=== PATIENT | female | born 2000 | race Caucasian/White ===

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

== ENCOUNTER 2021-08-17 07:02 | Emergency (ER) | payer OTHER ==
[~2021-08-17] VITALS: Ht 157.5 cm; Wt 75.0 kg
[2021-08-17 08:05] VITALS: BP 111/75
== END 2021-08-17 10:10 | disposition home or self-care (01) ==
LOC: ED 07:02
DX: J06.9 Acute upper respiratory infection, unspecified (principal); J35.8 Other chronic diseases of tonsils and adenoids; F17.200 Nicotine dependence, unspecified, uncomplicated; K21.9 Gastro-esophageal reflux disease without esophagitis; Z20.822 Contact with and (suspected) exposure to COVID-19

== ENCOUNTER 2023-01-10 11:13 | Emergency (ER) | payer OTHER ==
[~2023-01-10] VITALS: Ht 157.5 cm; Wt 88.4 kg
[2023-01-10 11:33] VITALS: BP 102/76
[2023-01-10 12:00] VITALS: BP 110/74
[2023-01-10] MEDS ORDERED: FLEXERIL5 M1 PO (12:21)
[2023-01-10] MEDS ORDERED: IBUPROFEN600 MG PO (12:21)
[2023-01-10 12:30] VITALS: BP 100/69
[2023-01-10 13:00] VITALS: BP 102/68
[2023-01-10 13:10] VITALS: BP 102/68
== END 2023-01-10 13:21 | disposition home or self-care (01) ==
LOC: ED 11:13
DX: M25.562 Pain in left knee (principal); F17.200 Nicotine dependence, unspecified, uncomplicated

== ENCOUNTER 2024-02-25 12:04 | Emergency (ER) | payer OTHER ==
[~2024-02-25] VITALS: Ht 157.5 cm; Wt 75.0 kg
[~2024-02-25 12:04] MED LIST changes: +FLEXERIL5 M1 PO; +IBUPROFEN600 MG PO
[2024-02-25 12:12] VITALS: BP 129/92
[2024-02-25 12:15] VITALS: BP 115/69
[2024-02-25] MEDS ORDERED: PROMETHAZINE HCL 25 MG/ML AMP IM ONE (12:15)
[2024-02-25 12:35] LABS: BASO% 0.4 % (0-3); EOS% 2.3 % (0-8); HEMATOCRIT 40.3 % (37.0-47.0); HEMOGLOBIN 13.8 g/dl (12.0-16.0); IMMATURE GRANULOCYTES 0.2 % (0.0-5.0); LYMPH% 31.8 % (15-41); MEAN CELL VOLUME 97.8 fL CALC (80.0-100.0); MEAN CORPUSCULAR HGB 33.5 pG CALC (26.0-32.0); MEAN CORPUSCULAR HGB CONC 34.2 g/dL CAL (32.0-36.0); MONO% 11.4 % (2-13); NEUT# 3.04 thou/uL (2.00-7.15); NEUT% 53.9 % (42-76); RED BLOOD COUNT 4.12 mill/uL (4.20-5.60)
[2024-02-25 12:52] VITALS: BP 96/70
[2024-02-25 12:56] LABS: ALBUMIN 4.1 g/dL (3.2-5.0); BILIRUBIN, TOTAL 0.7 mg/dL (0.02-1.3); CREATININE 0.7 mg/dL (0.5-1.0); POTASSIUM 3.7 mmol/l (3.5-5.1); TOTAL PROTEIN 7.2 g/dL (6.3-8.2)
[2024-02-25 14:54] VITALS: BP 96/70
== END 2024-02-25 15:00 | disposition home or self-care (01) ==
LOC: ED 12:04
PROVIDERS: Family Medicine
DX: R11.2 Nausea with vomiting, unspecified (principal); N93.9 Abnormal uterine and vaginal bleeding, unspecified; F17.200 Nicotine dependence, unspecified, uncomplicated

== ENCOUNTER 2024-08-09 11:47 | Emergency (ER) | payer OTHER ==
[~2024-08-09] VITALS: Ht 157.5 cm; Wt 75.0 kg
[2024-08-09 13:03] VITALS: BP 97/70
[2024-08-09 13:15] VITALS: BP 101/75
[2024-08-09 13:32] VITALS: BP 101/75
== END 2024-08-09 13:33 | disposition home or self-care (01) ==
LOC: ED 11:47
DX: M79.672 Pain in left foot (principal); F17.200 Nicotine dependence, unspecified, uncomplicated

== ENCOUNTER 2024-08-11 12:27 | Emergency (ER) | payer OTHER ==
[~2024-08-11] VITALS: Ht 157.5 cm; Wt 72.2 kg
[2024-08-11] MEDS ORDERED: NEURONTIN100 MG PO (14:39)
[2024-08-11 14:49] VITALS: BP 100/66
== END 2024-08-11 14:50 | disposition home or self-care (01) ==
LOC: ED 12:27
DX: R20.2 Paresthesia of skin (principal); F17.200 Nicotine dependence, unspecified, uncomplicated